=== PATIENT | male | born 1980 | race African-American/Black ===

== ENCOUNTER 2022-11-30 23:14 | Emergency (ER) | payer SELFPAY ==
[2022-11-30] VITALS (7 sets, daily range): BP systolic 157–166; BP diastolic 97–103; PULSE 66–85; RESP 10–18; TEMP 36.8; O2SAT 95–100; BMI 45.9
--- NOTE | 2022-11-30 23:29 | ED.EXTPRO1 ---
HPI - Extremity Problem General Chief complaint: Neuro Symptoms/Deficit Stated complaint: tingling HANDS AND FEET Time Seen by Provider: 11/30/22 23:23 History of Present Illness HPI Narrative: noticed tingling of the right hand that started about one week ago. Would find himself opening and closing his hand to get the tingling to go away. The tingling then expanded to involve his arm. He would raise his arm and move it around and it would improve. Also some episodes of tingling or his right foot. No weakness of either extremity. He and his female partner feels he now has some swelling of the right arm also MD Complaint: Reports extremity swelling Related Data Home Medications Medication Instructions Recorded Confirmed No Known Home Medications 11/30/22 11/30/22 Allergies Allergy/AdvReac Type Severity Reaction Status Date / Time No Known Drug Allergies Allergy Verified 11/30/22 23:30 Review of Systems ROS Status of ROS 10 or more systems reviewed and unremarkable except as noted in history and below [facility], [facility] Social History Smoking status: Former smoker Exam Constitutional Vital Signs, click to edit/add: Last Vital Signs Temp 98.3 F 11/30/22 23:19 Pulse 67 12/01/22 00:10 Resp 12 12/01/22 00:10 BP 166/97 H 11/30/22 23:36 Pulse Ox 98 12/01/22 00:10 O2 Del Method Room Air 11/30/22 23:19 Common normals: no apparent distress, oriented x3, no limitations, healthy appearing, alert and well nourished Eye Common normals: EOMs intact bilaterally and conjunctivae normal Respiratory Common normals: normal respiratory effort, no retractions, no use of accessory muscles and clear to auscultation bilaterally Cardio Common normals: regular rate, regular rhythm, S1 normal heart sound and S2 normal heart sound GI Common normals: Normal to inspection, nondistended, normoactive bowel sounds present and soft to palpation Extremity Common normals: normal to inspection and full ROM Neuro Common normals: oriented x3, CN's II-XII intact bilaterally, moves all extremities, no focal motor deficits and no sensory deficits noted Psych Appearance: grossly normal Course Vital Signs Vital signs: Vital Signs Temperature 98.3 F 11/30/22 23:19 Pulse Rate 85 11/30/22 23:19 Respiratory Rate 18 11/30/22 23:19 Blood Pressure 157/103 H 11/30/22 23:19 Pulse Oximetry 100 11/30/22 23:19 Oxygen Delivery Method Room Air 11/30/22 23:19 Temperature 98.3 F 11/30/22 23:19 Pulse Rate 67 12/01/22 00:10 Respiratory Rate 12 12/01/22 00:10 Blood Pressure 166/97 H 11/30/22 23:36 Pulse Oximetry 98 12/01/22 00:10 Oxygen Delivery Method Room Air 11/30/22 23:19 MDM - Extremity (Nontraumatic) MDM Narrative Medical decision making narrative: patient presented with complaint of paresthesia on and off of the right upper ext and occ his foot also. Tonight he and his girlfriend were concerned due to swelling of the right arm. On my inspection of his arm I did not suspect any swelling. I ask his father if he thought his arm was swollen and he did not. CT brain without contrast neg. CTA neck and brain ordered. Patient left AMA before results were available. Lab Data Labs: Lab Results 11/30/22 Range/Units 00:25 WBC 10.1 (4.0-11.0) 10^3/uL RBC 4.37 L (4.70-6.10) 10^6/uL Hgb 12.5 L (14.0-18.0) g/dL Hct 40.2 L (42.0-54.0) % MCV 92.0 (80.0-94.0) fL MCH 28.6 (25.9-34.0) pg MCHC 31.1 (29.9-35.2) g/dL RDW 12.5 (11.0-15.0) % Plt Count 357 (150-450) 10^3/uL MPV 9.9 (9.5-13.5) fL Neut % (Auto) 53.5 (43.0-75.0) % Lymph % (Auto) 35.0 (20.5-60.0) % [place] % (Auto) 9.3 (1.7-12.0) % Eos % (Auto) 1.4 (0.9-7.0) % Baso % (Auto) 0.5 (0.2-2.0) % Neut # (Auto) 5.4 (1.4-6.5) 10^3/uL Lymph # (Auto) 3.5 (1.2-3.8) 10^3/uL [place] # (Auto) 0.9 H (0.3-0.8) 10^3/uL Eos # (Auto) 0.1 (0.0-0.7) 10^3/uL Baso # (Auto) 0.1 (0.0-0.1) 10^3/uL Abs Immat Gran (auto) 0.03 (0.00-0.03) 10^3/uL Imm/Tot Granulo (auto) 0.3 (0.0-0.5) % Sodium 139 (136-145) mmol/L Potassium 3.5 (3.5-5.1) mmol/L Chloride 101 (98-107) mmol/L Carbon Dioxide 29.1 (21.0-32.0) mmol/L Anion Gap 12.4 BUN 9.0 (7.0-18.0) mg/dL Creatinine 1.28 (0.70-1.30) mg/dL Est GFR ( Amer) >60 (>=60) Est GFR (Non-Af Amer) >60 (>=60) BUN/Creatinine Ratio 7.0 Glucose 111 H (74-106) mg/dL Calcium 8.6 (8.5-10.1) mg/dL Discharge Plan Discharge Chief Complaint: Neuro Symptoms/Deficit Clinical Impression: Arm paresthesia, right Patient Disposition: Left Against Medical Advice Prescriptions / Home Meds: No Action No Known Home Medications Stand Alone Forms: Portal Instructions Referrals: Physician,Non-Staff, [Physician] - 1 week Discharge Date/Time: 12/01/22 02:55
--- NOTE | 2022-11-30 23:35 | XR_ITS ---
The [place] [id number] Patient Name: MIRIAM PEREIRA MRN: [id number] date: 1980 Sex: M Assigned Patient Location: ER Current Patient Location: ED.MAIN Accession/Order Number: [id number] Exam Date: 11/30/2022 23:40 Report Date: 11/30/2022 23:59 At the request of: CAPRI GALVEZ Procedure: XR chest 1V EXAMINATION:XR chest 1V INDICATION:right arm non traumatic swelling COMPARISON:None TECHNIQUE:A single frontal view of the chest is submitted. FINDINGS: The cardiomediastinal silhouette is not enlarged. The pulmonary vascularity is within normal limits. The lungs are clear based on chest radiography. There is no costophrenic angle blunting. XR/XR chest 1V IMPRESSION: Unremarkable plain film examination of the chest. Electronically authenticated by: SAVANNAH CLARK Date: 11/30/2022 23:59
--- NOTE | 2022-11-30 23:35 | CT_ITS ---
The [address] [address] Patient Name: MIRIAM PEREIRA MRN: [id number] date: 1980 Sex: M Assigned Patient Location: ER Current Patient Location: .[facility] Accession/Order Number: [id number] Exam Date: 11/30/2022 23:40 Report Date: 12/01/2022 00:13 At the request of: CAPRI BECKFORD Procedure: CT stroke head/brain wo con EXAM: CT stroke head/brain wo con CLINICAL INDICATION: right sided paresthesia COMPARISON: None TECHNIQUE: Axial CT images of the brain were obtained without contrast. Dose reduction techniques were achieved by using automated exposure control and/or adjustment of mA and/or kV according to patient size and/or use of iterative reconstruction technique. FINDINGS: Brain parenchyma: No mass effect or midline shift is seen. Townsend-white differentiation is maintained. No findings suspicious for intracranial hemorrhage. No findings suggesting acute stroke. Ventricles and extra-axial spaces: Ventricles are concordant with sulci. No findings suggesting hydrocephalus. Visualized paranasal sinuses: No findings suggesting acute sinusitis. Mucous retention cyst versus polyp within the right maxillary sinus. Mastoid air cells: Clear. Included portions of the orbits:Included portions of the orbits with no evidence of fracture or other acute pathology. Bones: No fracture is seen. CT/CT stroke head/brain wo con Impression: No acute intracranial process. No findings suspicious for acute stroke by noncontrast head CT. If there is high suspicion for acute intracranial pathology, please note that magnetic resonance imaging or other additional evaluation may be more sensitive than noncontrast head CT. Findings were relayed to Dr. Beckford over telephone by Dr. Hernandez at 12:13 AM on 12/01/2022. Electronically authenticated by: ALCIDES HERNANDEZ Date: 12/01/2022 00:13
--- NOTE | 2022-11-30 23:38 | PC.NURSE ---
Pt presents to ER for numbness and tingling off and on to the right arm and leg for 1-2 weeks Pt states tonight he noticed the right arm and leg were larger than the left and the pain traveled up his arm Pt has no medical hx, takes no medications besides allergy meds and smokes marijuana Pt states this started more in just his hand but has progressively been coming up the arm Pt's is at bedside
--- NOTE | 2022-11-30 23:42 | ECG_ITS ---
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
[2022-12-01] VITALS: PULSE 71; RESP 15; O2SAT 97
[2022-12-01 00:10] VITALS: PULSE 67; RESP 12; O2SAT 98
--- NOTE | 2022-12-01 00:17 | CT_ITS ---
[address] [address] Patient Name: MIRIAM PEREIRA MRN: [id number] date: 1980 Sex: M Assigned Patient Location: ER Current Patient Location: Accession/Order Number: [id number] Exam Date: 12/01/2022 01:55 Report Date: 12/01/2022 02:54 At the request of: CAPRI GALVEZ Procedure: CT angio head EXAMINATION: CT angio head, CT angio neck CLINICAL INDICATION: Right-sided paresthesias. TECHNIQUE: Contiguous axial CT images of the head were acquired from the base of the skull to the vertex without intravenous contrast administration. CT angiography of the head was then performed following intravenous administration of 75 cc of Omnipaque 350 injected at a rate of 5 cc/sec. Multiple MIP images in axial, coronal, and sagittal planes and 3D surfaced rendered images were then acquired using the source data. Automated dose lowering techniques and/or adjustment according to patient size were utilized for this examination. COMPARISON: CT head 11/30/2022. FINDINGS: Study is slightly limited due to contrast bolus timing. CTA: CTA Head: The anterior and posterior cerebral circulations are patent. No large vessel occlusion, hemodynamically significant stenosis, aneurysm, dissection, or arteriovenous malformation is shown. CTA NECK: No significant flow-limiting stenosis is visualized along the origins of the great vessels. The left common, internal and external carotid arteries are patent without significant flow-limiting stenosis. The right common, internal and external carotid arteries are patent without significant flow-limiting stenosis. The bilateral vertebral artery origins appear patent. No significant flow-limiting stenosis is visualized along the extracranial course of the vertebral arteries within the limitations of this exam. Mucous retention cyst versus polyp within the right maxillary sinus. Central disc protrusion visualized at the C2-C3 level abutting the ventral cord with mild central canal narrowing. Disc osteophyte complex suspected at the C5-C6 level contributing to moderate central canal narrowing. There is limited evaluation of the central canal due to artifact, MRI of the cervical spine may be done to further evaluate if clinically warranted. CT/CT angio head IMPRESSION: Study is slightly limited due to contrast bolus timing. 1. Unremarkable CTA of the head and neck. 2. Mucous retention cyst versus polyp within the right maxillary sinus. 3. Central disc protrusion visualized at the C2-C3 level abutting the ventral cord with mild central canal narrowing. Disc osteophyte complex suspected at the C5-C6 level contributing to moderate central canal narrowing. There is limited evaluation of the central canal due to artifact, MRI of the cervical spine may be done to further evaluate if clinically warranted. Assessment of stenosis of the internal carotid arteries is based on NASCET criteria. Electronically authenticated by: ALCIDES HERNANDEZ Date: 12/01/2022 02:54
--- NOTE | 2022-12-01 00:17 | CT_ITS ---
[address] [address] Patient Name: MIRIAM PEREIRA MRN: [id number] date: 1980 Sex: M Assigned Patient Location: ER Current Patient Location: Accession/Order Number: [id number] Exam Date: 12/01/2022 01:55 Report Date: 12/01/2022 02:54 At the request of: CAPRI GALVEZ Procedure: CT angio neck EXAMINATION: CT angio head, CT angio neck CLINICAL INDICATION: Right-sided paresthesias. TECHNIQUE: Contiguous axial CT images of the head were acquired from the base of the skull to the vertex without intravenous contrast administration. CT angiography of the head was then performed following intravenous administration of 75 cc of Omnipaque 350 injected at a rate of 5 cc/sec. Multiple MIP images in axial, coronal, and sagittal planes and 3D surfaced rendered images were then acquired using the source data. Automated dose lowering techniques and/or adjustment according to patient size were utilized for this examination. COMPARISON: CT head 11/30/2022. FINDINGS: Study is slightly limited due to contrast bolus timing. CTA: CTA Head: The anterior and posterior cerebral circulations are patent. No large vessel occlusion, hemodynamically significant stenosis, aneurysm, dissection, or arteriovenous malformation is shown. CTA NECK: No significant flow-limiting stenosis is visualized along the origins of the great vessels. The left common, internal and external carotid arteries are patent without significant flow-limiting stenosis. The right common, internal and external carotid arteries are patent without significant flow-limiting stenosis. The bilateral vertebral artery origins appear patent. No significant flow-limiting stenosis is visualized along the extracranial course of the vertebral arteries within the limitations of this exam. Mucous retention cyst versus polyp within the right maxillary sinus. Central disc protrusion visualized at the C2-C3 level abutting the ventral cord with mild central canal narrowing. Disc osteophyte complex suspected at the C5-C6 level contributing to moderate central canal narrowing. There is limited evaluation of the central canal due to artifact, MRI of the cervical spine may be done to further evaluate if clinically warranted. CT/CT angio neck IMPRESSION: Study is slightly limited due to contrast bolus timing. 1. Unremarkable CTA of the head and neck. 2. Mucous retention cyst versus polyp within the right maxillary sinus. 3. Central disc protrusion visualized at the C2-C3 level abutting the ventral cord with mild central canal narrowing. Disc osteophyte complex suspected at the C5-C6 level contributing to moderate central canal narrowing. There is limited evaluation of the central canal due to artifact, MRI of the cervical spine may be done to further evaluate if clinically warranted. Assessment of stenosis of the internal carotid arteries is based on NASCET criteria. Electronically authenticated by: ALCIDES HERNANDEZ Date: 12/01/2022 02:54
[2022-12-01 00:40] LABS: Basophils Absolute Auto 0.1 10^3/uL (0.0-0.1); Basophils Percent Auto 0.5 % (0.2-2.0); Eosinophils Absolute Auto 0.1 10^3/uL (0.0-0.7); Eosinophils Percent Auto 1.4 % (0.9-7.0); Hematocrit 40.2 % (42.0-54.0); Hemoglobin 12.5 g/dL (14.0-18.0); Immature Granulocytes Abs Auto 0.03 10^3/uL (0.00-0.03); Immature Granulocytes Pct Auto 0.3 % (0.0-0.5); Lymphocytes Absolute Auto 3.5 10^3/uL (1.2-3.8); Mean Corpuscular HGB Conc 31.1 g/dL (29.9-35.2); Mean Corpuscular Hemoglobin 28.6 pg (25.9-34.0); Mean Platelet Volume 9.9 fL (9.5-13.5); Monocytes Absolute Auto 0.9 10^3/uL (0.3-0.8); Monocytes Percent Auto 9.3 % (1.7-12.0); Neutrophils Absolute Auto 5.4 10^3/uL (1.4-6.5); Neutrophils Percent Auto 53.5 % (43.0-75.0); Platelet Count 357 10^3/uL (150-450); Red Blood Count 4.37 10^6/uL (4.70-6.10); Red Cell Distribution Width 12.5 % (11.0-15.0); White Blood Count 10.1 10^3/uL (4.0-11.0)
[2022-12-01 00:49] LABS: Anion Gap 12.4; Calcium 8.6 mg/dL (8.5-10.1); Carbon Dioxide 29.1 mmol/L (21.0-32.0); Chloride 101 mmol/L (98-107); Estimated GFR (African America >60 (>=60); Estimated GFR (Non-African Ame >60 (>=60); Glucose 111 mg/dL (74-106); Potassium 3.5 mmol/L (3.5-5.1); Sodium 139 mmol/L (136-145)
== END 2022-12-01 02:55 | disposition left against medical advice (07) ==
PROVIDERS: Emergency Provider Internal Medicine; PCP Nurse Practitioner Primary Care
DX: R20.2 Paresthesia of skin (principal); Z87.891 Personal history of nicotine dependence
CPT/HCPCS: 36415; 70450; 70496; 70498; 71045; 80048; 85025; 93005; 99285; Q9967